=== PATIENT | male | born 1955 | race Caucasian/White ===

== ENCOUNTER 2024-08-10 07:04 | Day surgery (SDC) | payer BC, SELFPAY ==
[2024-08-10] MEDS: LACTATED RINGERS 1000ML 1,000 ML 25 ML IV (07:23)
[2024-08-10 07:27] VITALS: BP 124/87; PULSE 54; RESP 17; TEMP 36.1; O2SAT 99; BMI 21.7
--- NOTE | 2024-08-10 07:45 | P.HP_ITS ---
History of Present Illness *Admission Date: 08/10/24 *Reason for visit:: Surveillance-personal history of adenomatous polyps *History of present illness: Mr. Church is a 68-year-old gentleman who is here for surveillance colonoscopy. The examination is deemed medically necessary for surveillance colonoscopy secondary to a personal history of adenomatous polyps with last colonoscopy 5 years ago. The patient has been seen, interviewed and examined prior to the procedure by both myself and the anesthesia provider. [facility] Disclaimer: The information contained in this section may have been updated after the patient was seen, as this information can be updated by other users. Medical History (Updated 08/10/24 @ 07:46 by Steve James II, MD) Family history of colon cancer History of left heart catheterization Surgical History (Updated 08/10/24 @ 07:25 by Lilly Hung RN) History of colonoscopy with polypectomy History of arthroscopy of both knees Family History (Updated 08/10/24 @ 07:26 by Lilly Hung RN) Other Colon cancer Social History (Updated 08/10/24 @ 07:27 by Lilly Hung RN) Smoking Status: Never smoker alcohol intake: current current occupational status: employed Travel in the last 8 weeks: None Review of Systems Review of Systems Review of systems (narrative): Negative *Cardiovascular Comments: Negative *Gastrointestinal Comments: Negative *Genitourinary Comments: Negative *Musculoskeletal Comments: Negative *Neurologic Comments: Negative Meds Home Medications and Allergies Home Medications ?Medication ?Instructions ?Recorded ?Confirmed ?Type No Known Home Medications 08/10/24 08/10/24 History New Prescriptions to Start Prescriptions: Allergies Allergy/AdvReac Type Severity Reaction Status Date / Time No Known Allergies Allergy Verified 08/10/24 07:27 Exam Data for Last 24 hours Vital signs and Labs for Last 24 Hours: Temp Pulse Resp BP Pulse Ox O2 Del Method 97 F L 54 L 17 124/87 99 Room Air 08/10/24 07:27 08/10/24 07:27 08/10/24 07:27 08/10/24 07:27 08/10/24 07:27 08/10/24 07:27 I & O for Last 24 hours: Intake & Output 08/07/24 08/08/24 08/09/24 08/10/24 23:59 23:59 23:59 23:59 Weight 165 lb *Routine HEENT Exam Head: Present normocephalic Eye: Present EOMI and PERRL ENT: Present mucous membranes moist *Routine Neck Exam Neck: Present supple *Routine Respiratory Exam Respiratory: Present CTA bilaterally *Routine Cardiovascular Exam Cardiovascular: Present RRR *Routine Abdominal Exam Abdominal: Present soft and normoactive bowel sounds; Absent tenderness *Routine Rectal Exam Rectal:: deferred *Routine Genitalia Exam Genitalia:: deferred *Routine Extremities Exam Extremities: Absent cyanosis, clubbing or edema *Routine Skin Exam Skin: Present warm; Absent rash *Routine Neurological Exam Neurological: Present alert and oriented X3 Assessment and Plan *Assessment and plan (1) Personal history of adenomatous and serrated colon polyps: Status: Acute Category: Medical Code(s): Z86.0101 - Personal history of adenomatous and serrated colon polyps Plan A/P: 1. Personal history of adenomatous polyps is the preprocedural diagnosis. The patient will be anesthetized/sedated using MAC sedation. The patient has been seen and examined. Cardiac and lung assessment prior to the examination is stable. Proceed with planned colonoscopy
[2024-08-10 07:51] VITALS: O2SAT 98
--- NOTE | 2024-08-10 07:52 | EXP.ANES.CKL ---
[facility] Disclaimer: The information contained in this section may have been updated after the patient was seen, as this information can be updated by other users. Medical History (Updated 08/10/24 @ 07:46 by Steve James II, MD) Family history of colon cancer History of left heart catheterization Surgical History (Updated 08/10/24 @ 07:25 by Lilly Hung, JASON) History of colonoscopy with polypectomy History of arthroscopy of both knees Family History (Updated 08/10/24 @ 07:26 by Lilly Hung RN) Other Colon cancer Social History (Updated 08/10/24 @ 07:27 by Lilly Hung RN) Smoking Status: Never smoker alcohol intake: current substance use type: denies use current occupational status: employed [employer] [facility] Anesthesia Checklist Patient Identification Patient Identification: Arm Band Structural Data Admitted From: Home Planned Operative Procedure/s: Colonoscopy Consent for Planned Operative Procedure(s) Verified: Yes Verified Documents: Surgical Consent and History and Physical NPO Status Verified Time NPO: 04:00 (prep) Additional verifications Anesthesia Reactions: No Airway Assessment Mallampati Score:: Class II C-Spine Mobility Assessed: Yes TMJ Mobility Assessed: Yes Dentition: Good Dentition Neurological Assessment Level of Consciousness: Awake, Alert and Appropriate Anesthesia Plan Anesthesia Risk discussed: Yes Anesthesia Plan: Verified ASA Class: II Anesthesia Type: MAC
--- NOTE | 2024-08-10 07:53 | P.PCN_ITS ---
[facility] Procedure Note Date: 08/10/24 Time: 08:10 Procedure Note:: Colonoscopy Procedure Report: Colonoscopy Endoscopist: Steve James II, MD Referring physician: Luciano Alcantar MD Date of Procedure: August 10, 2024 Equipment: Olympus 190 variable stiffness pediatric colonoscope Sedation: MAC sedation Indication: Mr. Church is a 68-year-old gentleman who is here for surveillance colonoscopy secondary to a personal history of adenomatous polyps and family history of colon cancer. The patient's father had colon cancer. The patient's last colonoscopy was 5 years ago. He reports no abdominal pain, weight loss, change in his bowel habits or rectal bleeding. Procedure: Prior to the procedure, a history and physical exam was performed, and patient's medications and allergies were reviewed. The risks, benefits and alternatives of the sedation and procedure were discussed with the patient. All questions were answered and informed consent was obtained. The patient was brought to the procedure room. Patient identification and proposed procedure were verified by the physician and the nurse. The patient was placed in a left lateral decubitus position and the scope was passed under direct vision. Throughout the procedure, the patient's blood pressure, pulse, and oxygen saturations were monitored continuously. The colonoscopy was accomplished without difficulty. The patient tolerated the procedure well. Findings: On digital rectal examination there was normal rectal tone. There were no external hemorrhoids. The colonoscope was introduced through the anal canal to the rectum and advanced to the cecum. The ileocecal valve and appendiceal orifice were identified. The scope was advanced a short distance into the ileum which appeared grossly normal. The scope was then withdrawn into the colon. The cecum, ascending, transverse, descending, sigmoid and rectum were grossly normal. There were no mucosal abnormalities identified. Upon retroflexion within the rectum there were grade 1-2 internal hemorrhoids.The preparation was excellent throughout with Endeavor Preparation Score of 9. The cecal time was 10 minutes. Impression: 1. Normal colonoscopy with intubation of the terminal ileum 2. Grade 1-2 internal hemorrhoids Plan: Based upon the patient's family history and prior adenomatous colon polyps, I would recommend repeat surveillance colonoscopy again in 5 years.
[2024-08-10 08:20] VITALS: BP 112/71; PULSE 69; RESP 18; TEMP 36.4; O2SAT 94
[2024-08-10 08:22] VITALS: BP 109/65; PULSE 58; RESP 18; O2SAT 94
[2024-08-10 08:32] VITALS: BP 95/66; PULSE 71; RESP 18; O2SAT 97
[2024-08-10 09:02] VITALS: BP 100/64; PULSE 61; RESP 18; O2SAT 95
== END 2024-08-10 09:02 | disposition home or self-care (01) ==
PROVIDERS: PCP Family Medicine; Visit Provider Internal Medicine Gastroenterology
PROC: (CPT 45378; principal; 2024-08-10 08:00)
DX: K64.8 Other hemorrhoids (principal); Z86.0101 Personal history of adenomatous and serrated colon polyps; Z80.0 Family history of malignant neoplasm of digestive organs
CPT/HCPCS: 45378; J7120